=== PATIENT | male | born 1975 | race African-American/Black ===

== ENCOUNTER 2016-07-18 23:03 | Emergency (ER) | payer SELFPAY ==
[~2016-07-18] VITALS: Ht 188 cm; Wt 74.0 kg
[2016-07-18 23:05] VITALS: BP 139/72; PULSE 59; RESP 16; TEMP 98; O2SAT 100
[2016-07-18] MEDS ORDERED: SULFAMETHOXAZOLE-TRIMETHOPRIM DS 800-160 MG TAB PO ONE (23:30)
[2016-07-18] MEDS ORDERED: DICL50TA3 PO (23:30)
[2016-07-18] MEDS ORDERED: BACT800T5 PO (23:30)
[2016-07-18] MEDS ORDERED: ACETAMINOPHEN/HYDROcodone 325 MG/5 MG TAB PO ONE (23:30)
--- NOTE | 2016-07-18 23:39 | PD ---
HPI Chief Complaint: ENT Complaint Time Seen by Provider: 23:31 Travel History International Travel<30 days: No Contact w/Intl Traveler<30days: No Traveled to known affect area: No History of Present Illness HPI 40-year-old black male presents emergency Department with complaints of left ear pain. He states that 2 days ago he developed a tender lump behind his left earlobe. Yesterday it open is started draining pus. Today he developed a large lump is below his ear on the left side which is very tender as well. He denies any fever chills. No sore throat or cough or congestion. He denies any history of abscess in the past. Up-to-date with immunizations. Patient states the pain is severe. Worse with palpation. No palliative activity. PFSH Past Medical History Medical History: Denies Significant Hx Immunizations Current: Yes Tetanus Vaccination: > 5 Years Influenza Vaccination: No Past Surgical History Surgical History: No Previous Surgery Social History Alcohol Use: No Tobacco Use: No Substance Use: No Allergies-Medications (Allergen,Severity, Reaction): Coded Allergies: No Known Allergies (Verified Allergy, Unknown, 12/11/02) Review of Systems Except as stated in HPI: all other systems reviewed are Neg Physical Exam Narrative GENERAL: This is a well-nourished, well-developed patient, in no apparent distress. SKIN: Patient has a 1.5 x 1.5 cm open draining abscess to his left posterior pinna. There is slight fluctuance. No pointing.., ecchymoses or lesions. Warm and dry. Patient also has a very large tender posterior auricular adenopathy HEAD: Atraumatic. Normocephalic. EYES: PERRL, EOMI, no discharge or injection. No scleral icterus. EARS: Clear NOSE: Nasal turbinates appear normal. THROAT: Mucosa pink and moist. Airway patent. NECK: Trachea midline. supple, moves head freely. LUNGS: Clear to auscultation. CV: Regular in rhythm. ABDOMEN: Soft nontender. EXT: No clubbing cyanosis or edema. Data Data Last Documented VS Vital Signs Date Time Temp Pulse Resp B/P Pulse Ox O2 Delivery O2 Flow Rate FiO2 07/18/16 23:05 98.0 59 16 139/72 100 Orders Acetamin-Hydrocod 325-5 Mg ([place] 5-325 (07/18/16 23:30) Sulfamet-Trimeth Ds 800-160 Mg (Bactrim (07/18/16 23:30) MDM Medical Decision Making Medical Screen Exam Complete: Yes Emergency Medical Condition: Yes Medical Record Reviewed: Yes Differential Diagnosis MDM: High Differential diagnoses: Abscess, folliculitis, cellulitis, lymphangitis, abrasion, contact dermatitis Narrative Course Patient's given Bactrim DS and Lortab 5 milligram by mouth. This is left earlobe open superficial abscess. Procedures Procedure Narrative Incision and drainage: An 11 blade scalpel is used to make a 0.5 cm +-type laceration centrally. A small amount of pus is expressed. Patient tolerates procedure well. Dressings applied by the nursing staff. Diagnosis Primary Impression: left earlobe open superficial abscess. Patient Instructions: General Instructions Departure Forms: Tests/Procedures, Work Release Special Instructions: No work 07/19/16 Additional Instructions: Rest. Elevation. keep clean and dry. Warm compresses. Daily wound care with soap, water and Neosporin. Diclofenac and Bactrim DS. Follow-up with a primary care doctor in one week. Return to the ER for any problems. Med/Other Pt SpecificInfo: Prescription(s) given Scripts Diclofenac Sodium DR 50 Mg Tabdr50 Mg PO TID #21 TAB Prov:Lela Aceves MD 07/18/16 Sulfamethoxazole-Trimethoprim (Bactrim DS)800-160 Mg Tab1 Tab PO BID #20 TAB Prov:Lela Aceves MD 07/18/16 Disposition: 01 DISCHARGE HOME Condition: Stable Jon Hdez Jul 18, 2016 23:39
== END 2016-07-18 23:51 | disposition home or self-care (01) ==
LOC: NEPK 23:03
DX: H60.02 Abscess of left external ear (principal)
CPT/HCPCS: 69000